=== PATIENT | male | born 1965 | race Hispanic/Latino ===

== ENCOUNTER 2019-08-27 11:16 | Emergency (ER) | payer OTHER ==
--- NOTE | 2019-08-27 11:24 | Emergency Department Report ---
ED Seizure HPI - General Chief Complaint: Seizure Stated Complaint: SEIZURE Time Seen by Provider: 08/27/19 11:22 Source: patient, EMS ( EMS documentation not available at time of chart dictation ), RN notes reviewed Mode of arrival: Stretcher Limitations: Other (Patient is a poor historian) - History of Present Illness Initial Comments: The patient is a 53-year-old gentleman. He is not known to myself previously. He is currently on a 1013. The patient has a history of possible high cholesterol. He does not have a formal diagnosis of epilepsy. Apparently, detoxing from Ativan and or Ambien. He is accompanied by a psychiatric sitter. He presents to the ER with a complaint of convulsions and possible seizure. The patient states his last convulsion was approximately 6 months ago. He has chronic back pain, but otherwise, denies physical pain. There is no complaint of headache, neck pain, chest pain, abdominal pain, shortness of breath, irritative/obstructive urinary symptoms. The patient states he is from [facility], but is currently / from his , and does not know where he is going to live once he is discharged from his psychiatric facility. He states "I guess I am just going to be a [facility]." He does not endorse homicidality or suicidality at this time. In the emergency room, he was initially conversing with nursing team, then, when I went in to speak to him, he was awake, but shaking. His nonspecific shaking episode was terminated with Valium. MD Complaint: possible seizure -: This morning Description of Episode: loss of consciousness, tonic-clonic movement -: second(s) Witnessed:: Yes Trauma: No Seizure History: other Place: other (Psychiatric facility) Possible Precipitating Event: other (Conversion disorder versus alcohol withdrawal) - Related Data Home Medications Medication Instructions Recorded Confirmed Last Taken Mirtazapine [Remeron 15mg TAB] 15 mg PO QHS 08/27/19 08/27/19 Unknown Multivitamin with Iron 1 each PO DAILY 08/27/19 08/27/19 Unknown [Multivitamins with Iron] Rosuvastatin (Nf) [Crestor] 10 mg PO QHS 08/27/19 08/27/19 08/25/19 traZODone [Desyrel] 100 mg PO QHS 08/27/19 08/27/19 08/26/19 Previous Rx's Medication Instructions Recorded Last Taken Type levETIRAcetam [Keppra TAB] 500 mg PO BID #60 tablet 08/27/19 Unknown Rx Allergies Allergy/AdvReac Type Severity Reaction Status Date / Time No Known Allergies Allergy Unverified 08/27/19 11:31 ED Review of Systems ROS: Stated complaint: SEIZURE Other details as noted in HPI Constitutional: denies: fever Eyes: denies: eye discharge ENT: denies: congestion Respiratory: denies: cough Cardiovascular: denies: chest pain Genitourinary: denies: dysuria Musculoskeletal: back pain (Chronic back pain) Neurological: denies: weakness Psychiatric: anxiety, depression ED Past Medical Hx - Medications Home Medications: Home Medications Medication Instructions Recorded Confirmed Last Taken Type Mirtazapine [Remeron 15mg TAB] 15 mg PO QHS 08/27/19 08/27/19 Unknown History Multivitamin with Iron 1 each PO DAILY 08/27/19 08/27/19 Unknown History [Multivitamins with Iron] Rosuvastatin (Nf) [Crestor] 10 mg PO QHS 08/27/19 08/27/19 08/25/19 History levETIRAcetam [Keppra TAB] 500 mg PO BID #60 tablet 08/27/19 Unknown Rx traZODone [Desyrel] 100 mg PO QHS 08/27/19 08/27/19 08/26/19 History ED Physical Exam - General Limitations: No Limitations General appearance: alert, in no apparent distress - Head Head exam: Present: atraumatic, normocephalic - Eye Eye exam: Present: normal appearance, PERRL, EOMI, other (Visual acuity intact to finger counting, color perception, reading at a close distance). Absent: nystagmus - ENT ENT exam: Present: normal exam, normal orophraynx, mucous membranes moist, normal external ear exam - Neck Neck exam: Present: normal inspection, full ROM. Absent: tenderness, meningismus - Respiratory Respiratory exam: Present: normal lung sounds bilaterally. Absent: respiratory distress - Cardiovascular Cardiovascular Exam: Present: regular rate, normal rhythm, normal heart sounds. Absent: bradycardia, tachycardia, irregular rhythm, systolic murmur, diastolic murmur, rubs, gallop - GI/Abdominal GI/Abdominal exam: Present: soft. Absent: distended, tenderness, guarding, rebound, rigid, pulsatile mass - Rectal Rectal exam: Present: deferred - Extremities Exam Extremities exam: Present: normal inspection, full ROM, other (2+ pulses noted in the bilateral upper and lower extremities. There is no palpable cord. negative Homans sign. Muscular compartments are soft. The pelvis is stable.). Absent: pedal edema, calf tenderness - Back Exam Back exam: Present: normal inspection, full ROM. Absent: tenderness, CVA tenderness (R), CVA tenderness (L), paraspinal tenderness, vertebral tenderness - Neurological Exam Neurological exam: Present: alert, oriented X3, other (No facial droop. Tongue midline. Extraocular movements intact bilaterally. Facial sensation intact to light touch in V1, V2, V3 distribution bilaterally. 5 and a 5 strength in 4 extremities. Sensation intact to light touch in 4 extremities.). Absent: motor sensory deficit - Psychiatric Psychiatric exam: Present: flat affect - Skin Skin exam: Present: warm, dry, intact, normal color. Absent: rash ED Course Vital Signs 08/27/19 08/27/19 08/27/19 11:15 11:30 12:00 Temperature 98.9 F Pulse Rate 78 87 Respiratory 20 20 18 Rate Blood Pressure 134/87 Blood Pressure 122/84 [Right] O2 Sat by Pulse 94 94 95 Oximetry 08/27/19 08/27/19 08/27/19 12:30 13:00 14:00 Temperature Pulse Rate 82 85 82 Respiratory 18 18 19 Rate Blood Pressure Blood Pressure 115/64 126/80 130/77 [Right] O2 Sat by Pulse 94 97 95 Oximetry - Reevaluation(s) Reevaluation #1: 08/27/19 14:06 Differential diagnosis, including but not limited to: Seizure, pseudoseizure, intracranial lesion, electrolyte derangement, urinary tract infection, psych ogenic seizure Assessment and plan: 53-year-old gentleman, who is currently afebrile, with reassuring vital signs, clinically sober at this time, with a GCS of 15, nonfocal motor exam, with resolved nonspecific convulsions. Suspect psychogenic event. Screening laboratory studies thus far unremarkable. After initial medication, no further convulsive events noted. Screening laboratory studies w ithin normal limits, serum toxicology studies pending at this time. CT scan of the brain is negative, urinalysis negative for acute findings. No focal pulmonary findings, do not clinically suspect pneumonia. Patient will need to follow-up with an outpatient neurologist, primary care doctor once medically cleared in the emergency room. 08/27/19 14:08 Reevaluation #2: 08/27/19 15:17 Patient is observed for hours without clinical decompensation. Objective imaging studies and laboratory studies unremarkable for acute pathology. Counseled to follow-up as an outpatient once discharged from his current psychiatric facility. ED Medical Decision Making - Lab Data Result diagrams: 08/27/19 11:30 08/27/19 11:30 Vital Signs 08/27/19 08/27/19 11:15 11:30 Temperature 98.9 F Pulse Rate 78 Respiratory 20 20 Rate Blood Pressure 134/87 O2 Sat by Pulse 94 94 Oximetry Lab Results 08/27/19 08/27/19 Range/Units 11:30 11:30 WBC 7.0 (4.5-11.0) K/mm3 RBC 5.00 (3.65-5.03) M/mm3 Hgb 14.9 (11.8-15.2) gm/dl Hct 44.2 (35.5-45.6) % MCV 89 (84-94) fl MCH 30 (28-32) pg MCHC 34 (32-34) % RDW 14.0 (13.2-15.2) % Plt Count 198 (140-440) K/mm3 Sodium 143 (137-145) mmol/L Potassium 3.6 (3.6-5.0) mmol/L Chloride 107.3 H (98-107) mmol/L Carbon Dioxide 22 (22-30) mmol/L Anion Gap 17 mmol/L BUN 8 L (9-20) mg/dL Creatinine 0.9 (0.8-1.5) mg/dL Estimated GFR > 60 ml/min BUN/Creatinine Ratio 9 % Glucose 138 H (75-100) mg/dL Calcium 9.0 (8.4-10.2) mg/dL Magnesium 2.30 (1.7-2.3) mg/dL Total Creatine Kinase 643 H (55-170) units/L - EKG Data -: EKG Interpreted by Mi EKG shows normal: sinus rhythm Rate: normal - EKG Data When compared to previous EKG there are: previous EKG unavailable 08/27/19 12:28 There is no prior EKG available for comparison. Sinus rhythm, 77 bpm, normal axis, QTC within normal limits, T wave abnormalities in the septal and lateral leads, there is no endorsement of chest pain, the EKG is abnormal, the EKG is not a STEMI - Radiology Data Radiology results: report reviewed, image reviewed Print Report Referring Physician: MARCIN ARCHIBALD Patient Name: ROQUE HYMAN Date of : 1965 Sex: Male Report Date: 2019-08-27 Report Status: Finalized Findings [facility] [address] [place] [address] Cat Scan Report Signed Patient: ROQUE HYMAN MR#: [id number] : 1965 Acct:[id number] Age/Sex: 53 / M ADM Date: 08/27/19 Loc: ED Attending Dr: Ordering Physician: MARCIN ARCHIBALD MD Date of Service: 08/27/19 Procedure(s): CT head/brain wo con Accession Number(s): [id number] cc: MARCIN ARCHIBALD MD NONENHANCED CT SCAN OF THE HEAD: INDICATION / CLINICAL INFORMATION: 53 years Male; seizure history of confusion. TECHNIQUE: Routine CT head without contrast. All CT scans at this location are performed using CT dose reduction for ALARA by means of automated exposure control. COMPARISON: None. FINDINGS: BRAIN / INTRACRANIAL CONTENTS: No acute hemorrhage, mass effect, midline shift, hydrocephalus, or acute, large territorial infarct. No chronic infarct or focal atrophy. Normal brain volume and ventricular/sulcal size for age. No significant white matter abnormality. Temporal lobes are normal. CRANIOCERVICAL JUNCTION: No significant abnormality. ORBITS: No significant abnormality of visualized orbits. SINUSES / MASTOIDS: No significant abnormality of the visualized paranasal sinuses or mastoid air cells. ADDITIONAL FINDINGS: None. IMPRESSION: No focal parenchymal lesion in the brain Signer Name: Galileo Grace MD Signed: 08/27/2019 12:13 PM Workstation Name: [id number] Transcribed By: BS Dictated By: Galileo Wilson MD Electronically Authenticated By: Galileo Wilson MD Signed Date/Time: 08/27/19 1213 DD/ 1211 Critical care attestation.: If time is entered above; I have spent that time in minutes in the direct care of this critically ill patient, excluding procedure time. ED Disposition Clinical Impression: History of convulsions, Medical clearance for psychiatric admission Disposition: DC/TX-65 PSY HOSP/PSY UNIT Is pt being admited?: No Does the pt Need Aspirin: No Condition: Stable Additional Instructions: Do not drive or operate motor vehicles for the next 6 months, or until cleared to do so by a primary care doctor. Take the medication as prescribed. Follow-up with a primary care doctor or neurologist within the next 7 days. Avoid consumption of alcohol, and sedating medications. Return to the emergency room right away with new pain, worsening pain, migration of pain, projectile vomiting, change in mental status, confusion, inability to tolerate liquid feeds, new, worsened or different symptoms not present on the initial emergency room evaluation. Prescriptions: levETIRAcetam [Keppra TAB] 500 mg PO BID #60 tablet Referrals: SAUL ANTOINE MD [Referring] - 3-5 Days DEE DEE MATAMOROS MD [Staff Physician] - 3-5 Days DARIO RODRIGUEZ MD [Staff Physician] - 3-5 Days
[2019-08-27 12:05] LABS: Hematocrit 44.2 % (35.5-45.6); Hemoglobin 14.9 gm/dl (11.8-15.2); Mean Corpuscular HGB Conc 34 % (32-34); Mean Corpuscular Volume 89 fl (84-94); Platelet Count 198 K/mm3 (140-440)
[2019-08-27] MEDS ORDERED: diazePAM 10 MG/2 ML SYRINGE IV ONE (12:09)
[2019-08-27] MEDS ORDERED: levETIRAcetam 1000 MG/NS 0.75% 1,000 MG/100 ML BAG IV ONE (12:10)
--- NOTE | 2019-08-27 12:18 | Cat Scan Report ---
NONENHANCED CT SCAN OF THE HEAD: INDICATION / CLINICAL INFORMATION: 53 years Male; seizure history of confusion. TECHNIQUE: Routine CT head without contrast. All CT scans at this location are performed using CT dos e reduction for ALARA by means of automated exposure control. COMPARISON: None. FINDINGS: BRAIN / INTRACRANIAL CONTENTS: No acute hemorrhage, mass effect, midline shift, hydrocephalus, or ac nav[place], large territorial infarct. No chronic infarct or focal atrophy. Normal brain volume and ventricu lar/sulcal size for age. No significant white matter abnormality. Temporal lobes are normal. CRANIOCERVICAL JUNCTION: No significant abnormality. ORBITS: No significant abnormality of visualized orbits. SINUSES / MASTOIDS: No significant abnormality of the visualized paranasal sinuses or mastoid air abiodun ls. ADDITIONAL FINDINGS: None. IMPRESSION: No focal parenchymal lesion in the brain Signer Name: Galileo Grace MD Signed: 08/27/2019 12:13 PM Workstation Name: [id number]
[2019-08-27 12:23] LABS: BUN/Creatinine Ratio 9; Blood Urea Nitrogen 8 mg/dL (9-20); Hemolysis Index 10
[2019-08-27 13:04] LABS: Bilirubin,Urine NEG (Negative); Blood,Urine NEG (Negative); Color,Urine Yellow (Yellow); Granular Casts,Urine 20 /LPF; Mucus,Urine FEW /HPF; Protein,Urine <15 mg/dL mg/dL (Negative); RBC,Urine < 1.0 /HPF (0.0-6.0); Urobilinogen,Urine < 2.0 mg/dL (<2.0)
[2019-08-27 16:25] VITALS: BP 117/78
== END 2019-08-27 16:14 ==
LOC: ED 11:16
DX: G40.909 Epilepsy, unspecified, not intractable, without status epilepticus (principal); Z00.8 Encounter for other general examination; Z79.899 Other long term (current) drug therapy
CPT/HCPCS: 36415; 70450; 80048; 81001; 82550; 83735; 84443; 85027; 93005; 96365; 96366; 96375; 99285; J1953; J3360; 80320; G0480